=== PATIENT | female | born 1935 | race African-American/Black ===

== ENCOUNTER 2017-06-25 15:01 | Emergency (ER) | payer MEDICARE, OTHER ==
[~2017-06-25] VITALS: Ht 162.6 cm; Wt 61.2 kg
[2017-06-25 16:00] VITALS: BP 145/78
[2017-06-25] MEDS ORDERED: Vancomycin 1250mg/D5W 250ml 250 ML IVPB STA (16:01)
[2017-06-25] MEDS ORDERED: cefTRIAXone 1 GM in NS 55 ML IVPB ONE (16:15)
[2017-06-25 16:45] LABS: BASOPHILS % (AUTO) 1.2 % (0.0-2.0); EOSINOPHILS % (AUTO) 7.8 % (0.0-3.0); HEMATOCRIT 36.6 % (37.0-47.0); HEMOGLOBIN 10.9 G/DL (12.0-16.0); LYMPHOCYTES % (AUTO) 26.3 % (20.0-45.0); MEAN CORPUSCULAR VOLUME 91 FL (80-99); MONOCYTES % (AUTO) 7.1 % (1.0-10.0); NEUTROPHILS % (AUTO) 57.7 % (45.0-75.0); PLATELET COUNT 229 K/UL (150-450); RED BLOOD COUNT 4.03 M/UL (4.20-5.40); RED CELL DISTRIBUTION WIDTH 14.2 % (11.6-14.8); WHITE BLOOD COUNT 4.7 K/UL (4.8-10.8)
[2017-06-25 17:07] LABS: ANION GAP 5 mmol/L (5-15); BLOOD UREA NITROGEN 16 mg/dL (7-18); CALCIUM 8.3 MG/DL (8.5-10.1); CARBON DIOXIDE 30 MMOL/L (21-32); CHLORIDE 106 MMOL/L (98-107); CREATININE 0.6 MG/DL (0.55-1.30); POTASSIUM 3.8 MMOL/L (3.5-5.1); SODIUM 141 MMOL/L (136-145)
[2017-06-25 17:17] LABS: ALANINE AMINOTRANSFERASE 20 U/L (12-78); ALBUMIN 2.9 G/DL (3.4-5.0); ALBUMIN/GLOBULIN RATIO 0.6 (1.0-2.7); ALKALINE PHOSPHATASE 71 U/L (46-116); ASPARTATE AMINO TRANSFERASE 19 U/L (15-37); BILIRUBIN,TOTAL 0.2 MG/DL (0.2-1.0)
[2017-06-25 17:37] LABS: APPEARANCE,URINE CLEAR; BILIRUBIN, URINE NEGATIVE (NEGATIVE); COLOR,URINE YELLOW; GLUCOSE, URINE (UA) NEGATIVE (NEGATIVE); KETONES,URINE 1+ (NEGATIVE); LEUKOCYTE ESTERASE ,URINE 2+ (NEGATIVE); NITRITE,URINE NEGATIVE (NEGATIVE); PH,URINE 7 (4.5-8.0); PROTEIN,URINE 1+ (NEGATIVE); UROBILINOGEN,URINE 4 MG/DL (0.0-1.0)
[2017-06-25] MEDS ORDERED: cefTRIAXone 1 GM in NS 110 ML IVPB ONE (17:45)
[2017-06-25] MEDS ORDERED: NKM (18:06)
[2017-06-25 19:20] VITALS: BP 159/86
[2017-06-25] MEDS ORDERED: CLEOCIN150 MG ORAL (19:37)
--- NOTE | 2017-06-25 23:28 | Emergency Room Report ---
History of Present Illness General Chief Complaint: Pain Source: Patient, EMS (ZHENG WHITMORE) Present Illness HPI The patient is a 81-year-old female presenting for bilateral foot pain for the past week. She states that she noticed redness as well. Pain is a 10 out of 10 dull ache. Does not radiate. She admits to history of diabetes. She denies any injury to the area. Pain worse with walking. She denies other symptoms including fever, chills, nausea, vomiting, shortness of breath, cough, numbness or tingling (ZHENG WHITMORE.Mikaela) Allergies: Coded Allergies: TETRACYCLINES (Verified Allergy, Unknown, 06/25/17) Patient History Past Medical History: see triage record Pertinent Family History: none Reviewed Nursing Documentation: PMH: Agreed, PSxH: Agreed (ZHENG WHITMORE) Nursing Documentation-PMH Past Medical History: No Stated History (ZHENG WHITMORE.Mikaela) Review of Systems All Other Systems: negative except mentioned in HPI (ZHENG WHITMORE P.ASusan) Physical Exam Vital Signs Date Time Temp Pulse Resp B/P (MAP) Pulse Ox O2 Delivery O2 Flow Rate FiO2 06/25/17 14:53 97.5 80 20 175/70 97 Room Air Sp02 EP Interpretation: reviewed, normal General Appearance: no apparent distress, alert, GCS 15, non-toxic Head: normocephalic, atraumatic Eyes: bilateral eye normal inspection, bilateral eye PERRL Musculoskeletal: back normal, gait/station normal, normal range of motion, no calf tenderness, inflammation - bilat feet, tender - bilat feet Neurologic: alert, oriented x3, responsive, motor strength/tone normal, sensory intact, speech normal Psychiatric: judgement/insight normal, memory normal, mood/affect normal, no suicidal/homicidal ideation Skin: rash - bilat erythema to feet Lymphatic: no adenopathy (ZHENG WHITMORE P.ASusan) Medical Decision Making PA Attestation Dr. Jackson is my supervising physician. Patient management was discussed with my supervising physician (ZHENG WHITMORE) Diagnostic Impression: Primary Impression: Cellulitis Qualified Codes: L03.119 - Cellulitis of unspecified part of limb ER Course The patient is a 81-year-old female presenting for bilateral foot pain for the past week. Differential diagnoses considered but not limited to: cellulitis, osteomyelitis , ulcer, sepsis, among others PE: Afebrile. NAD Bilateral lower extremity has erythema, edema, and tenderness to palpation from ankle to feet. Maggots between toenails and toes. SILT labs: No leukocytosis. Lactate within normal limits X-ray of bilateral feet unremarkable. No signs of osteomyelitis. No gases seen. The patient is given IV antibiotics Dr. Jackson has spoken with the admitting physician. The patient will be transported to another hospital for further treatment. She agrees with this plan. She initially wanted to sign out AMA but has now changed her mind. Laboratory Tests Test 06/25/17 16:30 06/25/17 17:20 White Blood Count 4.7 K/UL (4.8-10.8) L Red Blood Count 4.03 M/UL (4.20-5.40) L Hemoglobin 10.9 G/DL (12.0-16.0) L Hematocrit 36.6 % (37.0-47.0) L Mean Corpuscular Volume 91 FL (80-99) Mean Corpuscular Hemoglobin 27.0 PG (27.0-31.0) Mean Corpuscular Hemoglobin Concent 29.7 G/DL (32.0-36.0) L Red Cell Distribution Width 14.2 % (11.6-14.8) Platelet Count 229 K/UL (150-450) Mean Platelet Volume 6.0 FL (6.5-10.1) L Neutrophils (%) (Auto) 57.7 % (45.0-75.0) Lymphocytes (%) (Auto) 26.3 % (20.0-45.0) Monocytes (%) (Auto) 7.1 % (1.0-10.0) Eosinophils (%) (Auto) 7.8 % (0.0-3.0) H Basophils (%) (Auto) 1.2 % (0.0-2.0) Sodium Level 141 MMOL/L (136-145) Potassium Level 3.8 MMOL/L (3.5-5.1) Chloride Level 106 MMOL/L (98-107) Carbon Dioxide Level 30 MMOL/L (21-32) Anion Gap 5 mmol/L (5-15) Blood Urea Nitrogen 16 mg/dL (7-18) Creatinine 0.6 MG/DL (0.55-1.30) Estimate Glomerular Filtration Rate mL/min (>60) Glucose Level 116 MG/DL (74-106) H Lactic Acid Level 0.90 mmol/L (0.66-2.22) Calcium Level 8.3 MG/DL (8.5-10.1) L Total Bilirubin 0.2 MG/DL (0.2-1.0) Aspartate Amino Transferase (AST) 19 U/L (15-37) Alanine Aminotransferase (ALT) 20 U/L (12-78) Alkaline Phosphatase 71 U/L (46-116) Total Protein 8.1 G/DL (6.4-8.2) Albumin 2.9 G/DL (3.4-5.0) L Globulin 5.2 g/dL Albumin/Globulin Ratio 0.6 (1.0-2.7) L Lipase 89 U/L (73-393) Urine Color Yellow Urine Appearance Clear Urine pH 7 (4.5-8.0) Urine Specific [place] 1.015 (1.005-1.035) Urine Protein 1+ (NEGATIVE) H Urine Glucose (UA) Negative (NEGATIVE) Urine Ketones 1+ (NEGATIVE) H Urine Occult Blood 2+ (NEGATIVE) H Urine Nitrite Negative (NEGATIVE) Urine Bilirubin Negative (NEGATIVE) Urine Urobilinogen 4 MG/DL (0.0-1.0) H Urine Leukocyte Esterase 2+ (NEGATIVE) H Urine RBC 5-10 /HPF (0 - 2) H Urine WBC 2-4 /HPF (0 - 2) Urine Squamous Epithelial Cells Few /LPF (NONE/OCC) Urine Amorphous Sediment Few /LPF (NONE) H Urine Bacteria Few /HPF (NONE) Lab Results Impression No leukocytosis. Lactate within normal limits (ZHENG WHITMORE P.A.) ER Course Technique: 3 views right foot Comparison: none Findings: Soft tissue defect is seen in the great toe distally. No definite osteolytic lesion, cortical erosion, or other findings to suggest acute osteomyelitis demonstrated. The bones are osteoporotic. No acute fractures. No dislocations. The joint spaces are preserved. There is hammertoe deformity of the second through fifth digits Impression: Soft tissue abnormality of the first toe, may be related to stated clinical history of first toe infection. No definite underlying osseous abnormality to suggest acute osteomyelitis. However, plain films are of limited sensitivity for such and bone scan or MRI should be considered for more sensitive characterization if there is high clinical suspicion Osteoporosis No acute bony trauma I have reviewed the PA's interpretation of Xray results and agree with findings. (Niles Jackson M.D.) Other X-Ray Diagnostic Results Other X-Ray Diagnostic Results #1: X-Ray ordered: L foot # of Views/Limited Vs Complete: 3 View Indication: Pain EP Interpretation: Yes PA Xray: Interpretation reviewed, by supervising MD, and agrees with findings. Interpretation: no dislocation, no soft tissue swelling, no fractures Impression: No acute disease Electronically Signed by: Zheng Whitmore PA-C Other X-Ray Diagnostic Results #2: X-Ray ordered: R foot # of Views/Limited Vs Complete: 3 View Indication: Pain EP Interpretation: Yes PA Xray: Interpretation reviewed, by supervising MD, and agrees with findings. Interpretation: no dislocation, no soft tissue swelling, no fractures Impression: No acute disease Electronically Signed by: Zheng Whitmore PA-C (ZHENG WHITMORE P.A.) Last Vital Signs Date Time Temp Pulse Resp B/P (MAP) Pulse Ox O2 Delivery O2 Flow Rate FiO2 06/25/17 14:53 97.5 80 20 175/70 97 Room Air Status: improved (ZHENG WHITMORE P.A.) Disposition: XFER SHT-TRM HOSP Condition: Serious Scripts Clindamycin HCl (Clindamycin HCl) 300 Mg Capsule 150 MG ORAL Q6H, #28 CAP Prov: ZHENG WHITMORE 06/25/17 Patient Instructions: Cellulitis Additional Instructions: you have chosen to leave AGAINST MEDICAL ADVICE. You understand the risks of this including worsening infection, amputation, or even . Please return to the emergency department if you change your mind ZHENG WHITMORE Jun 25, 2017 23:28 Niles Jackson M.D. Jun 26, 2017 21:22
[2017-06-25 23:59] VITALS: BP 138/79
--- NOTE | 2017-06-26 08:29 | Diagnostic Imaging Report ---
Indication: Reason For Exam: PAIN first digit infection Technique: 3 views right foot Comparison: none Findings: Soft tissue defect is seen in the great toe distally. No definite osteolytic lesion, cortical erosion, or other findings to suggest acute osteomyelitis demonstrated. The bones are osteoporotic. No acute fractures. No dislocations. The joint spaces are preserved. There is hammertoe deformity of the second through fifth digits Impression: Soft tissue abnormality of the first toe, may be related to stated clinical history of first toe infection. No definite underlying osseous abnormality to suggest acute osteomyelitis. However, plain films are of limited sensitivity for such and bone scan or MRI should be considered for more sensitive characterization if there is high clinical suspicion Osteoporosis No acute bony trauma
--- NOTE | 2017-06-26 08:33 | Diagnostic Imaging Report ---
Indication: Reason For Exam: PAIN Technique: 3 views left foot Comparison: none Findings: Exam is limited due to lack of a true AP view. Bones are osteoporotic. No definite osteolytic lesion or other findings to suggest acute osteomyelitis. There is hammertoe deformity of the second through fifth digits. No acute fractures. No dislocations. The joint spaces are preserved Impression: No acute process Osteoporosis
== END 2017-06-26 00:02 | disposition short-term general hospital (02) ==
LOC: EDBD 15:01 → EDBEDREQ 16:10 → EMR 17:13
DX: L03.116 Cellulitis of left lower limb (principal); L03.115 Cellulitis of right lower limb; Z88.1 Allergy status to other antibiotic agents
CPT/HCPCS: 36415; 73630; 80053; 81003; 83605; 83690; 85025; 87040; 96361; 96365; 96366; 99285; J0696; J3370